=== PATIENT | male | born 1990 | race Asian ===

== ENCOUNTER 2022-12-11 13:04 | Inpatient (IN) | payer OTHER ==
[~2022-12-11] VITALS: Ht 172.7 cm; Wt 95.3 kg
[2022-12-11] MEDS ORDERED: LORAZEPAM 1 MG TABLET PO PRN ×8 (15:00→17:30)
[2022-12-11] MEDS ORDERED: ZOLPIDEM 5 MG TABLET PO PRN ×9 (15:00→17:30)
[2022-12-11 17:27] VITALS: BP 145/85; TEMP 98; O2SAT 96
[2022-12-11] MEDS ORDERED: MAGNESIUM HYDROXIDE 30 ML LIQUID UDC PO PRN (17:30)
[2022-12-11] MEDS ORDERED: IBUPROFEN 600 MG TABLET PO PRN (17:30)
[2022-12-11] MEDS ORDERED: MAG HYDROX/AL HYDROX/SIMETH 30 ML LIQUID UDC PO PRN (17:30)
[2022-12-11] MEDS ORDERED: ACETAMINOPHEN ES 500 MG TABLET PO PRN (17:30)
--- NOTE | 2022-12-11 18:04 | NUR ---
Patient is alert, oriented x4, no sob, respirations are even nonlabored, skin warm and dry to touch, came to unit ambulatory, with research team. any concerns will contact dr carmichael.
[2022-12-11] MEDS ORDERED: OLANZAPINE 10 MG PO SCH (19:00)
--- NOTE | 2022-12-11 20:00 | NUR ---
DR. DYE SPOKE TO PATIENT
--- NOTE | 2022-12-11 20:00 | NUR ---
Received patient laying in bed Alert and Oriented X4. In no acute distress. Call light within reach, will continue to monitor and continue plan of care. Will contact with any change of condition.
[2022-12-12] MEDS: OLANZAPINE 10 MG PO SCH ×2 (08:27→16:24)
[2022-12-12] MEDS ORDERED: OLANZAPINE 5 MG TABLET PO SCH ×2 (09:00)
--- NOTE | 2022-12-12 11:12 | NUR ---
patient is sleeping, no distress noted, patient ate his meal.
[2022-12-12 11:56] VITALS: BP 137/70; TEMP 98.3; O2SAT 97
[2022-12-12 16:00] VITALS: BP 128/88; TEMP 98.5; O2SAT 98
--- NOTE | 2022-12-12 19:21 | NUR ---
patient took shower, tolerated all the meals, no distress noted
[2022-12-12 22:44] VITALS: BP 151/94; TEMP 98; O2SAT 98
[2022-12-13 04:00] VITALS: BP 123/86; TEMP 97.8; O2SAT 100
--- NOTE | 2022-12-13 05:39 | NUR ---
Pt received sitting in bed in no distress requesting some snack. Provided snack and PO fluids tolerates well, denies any discomfort no distracted behavior observed. Pt did not want a hospital gown. at 0200 Pt uses his vaping in his room activation the alarm of the smoke detector. Pt understood no vaping inside of the room and agrees to handle his vaping to staff until AM. No PRN requested after and Pt slept without any more distraction. Endorse care to incoming nurse
[2022-12-13 07:14] VITALS: BP 123/80; TEMP 97.8; O2SAT 100
[2022-12-13 08:00] VITALS: BP 123/79; TEMP 97.8; O2SAT 98
[2022-12-13] MEDS: OLANZAPINE 10 MG PO SCH ×2 (09:07→16:27)
[2022-12-13 12:00] VITALS: BP 109/83; TEMP 97.9; O2SAT 99
[2022-12-13 16:00] VITALS: BP 118/80; TEMP 97.5; O2SAT 100
--- NOTE | 2022-12-13 16:59 | NUR ---
Spoke with rissa wills for research- confiscated vape. Instructed pt not to vape in the room. Pt denies any co pain. Pt cooperative with taking his pills. Pt denies any c/o pain.
--- NOTE | 2022-12-13 18:36 | NUR ---
NO EPS NOTED THROUGHOUT SHIFT.
[2022-12-13 20:00] VITALS: BP 103/70; TEMP 98.7; O2SAT 99
[2022-12-14 04:00] VITALS: BP 113/71; TEMP 98.3; O2SAT 99
--- NOTE | 2022-12-14 06:19 | NUR ---
Pt received in bed taken a nap no respiratory distress observed,snack was provided to pt, and denies any discomfort No PRN medication was requested. Pt tolerates well PO intake, denies any abdominal discomfort. Pt slept well during the night. continue monitoring safety and endorse care to incoming nurse
[2022-12-14] MEDS: OLANZAPINE 10 MG PO SCH ×2 (09:21→16:43)
[2022-12-14 12:00] VITALS: BP 121/88; TEMP 97.6; O2SAT 99
[2022-12-14 16:10] VITALS: BP 120/91; TEMP 97.6; O2SAT 96
--- NOTE | 2022-12-14 18:39 | NUR ---
No EPS noted. Pt is in no acute distress. Pt had a shower today. Pt more awake alert and walking about. Reinforce rules re: Vaping. No vaping inside the room.
--- NOTE | 2022-12-14 19:30 | NUR ---
Received patient sleeping in bed. In no acute distress, Alert and Oriented X4. Fully ambulatory. Will continue to monitor and will continue plan of care.
[2022-12-14 20:00] VITALS: BP 143/71; TEMP 98.4; O2SAT 98
[2022-12-15 04:00] VITALS: BP 121/88; TEMP 98.3; O2SAT 97
[2022-12-15] MEDS ORDERED: OLANZAPINE 10 MG PO SCH (09:00)
[2022-12-15 11:58] VITALS: BP 122/75; TEMP 98; O2SAT 98
[2022-12-15 15:56] VITALS: BP 118/83; TEMP 98.6; O2SAT 99
--- NOTE | 2022-12-15 17:38 | NUR ---
No tremors noted throughout shift.
--- NOTE | 2022-12-15 20:00 | NUR ---
Received patient sleeping in bed. In no acute distress, Alert and Oriented X4. Fully ambulatory. Will continue to monitor and will continue plan of care.
--- NOTE | 2022-12-16 07:30 | NUR ---
NIGHT NURSE REPORT RECEIVED: 1) MENTAL STATE: AO x 4 - No SOB, signs of pain, or distress. 2) BREATHING: Patient on RA - , sat in the high 90s. No sign of distress observed. 3) SAFETY: BRP - Bed in low position, Bed alarm not activated, floor free of clutter and call clement within reach. 4) CIRCULATION: No signs of cyanosis observed. 5) MOBILITY: Fully mobile- independent. 6) BOWEL MOVEMENT: No Bowels at the time of this report. 7) INFECTION CONTROL: Iv access - clean, dry, patent, and no sign of inflammation or infection observed. 8) SKIN: Patient skin intact 9) PLAN: (i) Will continue to treat patient accordingly. (ii) Patient going out for the day / day leave
--- NOTE | 2022-12-16 08:00 | NUR ---
DAY LEAVE: Patient left the unit as RN started the shift - this was from prior arrangement and agreement with
[2022-12-16] MEDS ORDERED: LORAZEPAM 1 MG TABLET PO PRN (15:00)
[2022-12-16] MEDS ORDERED: ZOLPIDEM 5 MG TABLET PO PRN (15:00)
--- NOTE | 2022-12-16 19:30 | NUR ---
Received patient sleeping in bed. In no acute distress, Alert and Oriented X4. Fully ambulatory. Will continue to monitor and will continue plan of care.
[2022-12-16 20:00] VITALS: BP 123/92; TEMP 97.4; O2SAT 100
[2022-12-16 21:35] VITALS: BP 123/92; TEMP 97.4; O2SAT 100
[2022-12-17 04:00] VITALS: BP 129/88; TEMP 97.8; O2SAT 100
--- NOTE | 2022-12-17 07:00 | NUR ---
Received patient sleeping in bed. In no acute distress, Alert and Oriented X4. Fully ambulatory. Will continue to monitor and will continue plan of care.
--- NOTE | 2022-12-17 10:23 | NUR ---
Research team, Viry and 1 other, took pt downstairs for a smoking break. Pt stable. Ambulating with steady gait.
--- NOTE | 2022-12-17 10:45 | NUR ---
Patient was out on pass with research team. Not seen yet
--- NOTE | 2022-12-17 14:49 | NUR ---
Patient came back from out on pass, brought by research team. Ambulatory, awake, alert and oriented Vital signs taken and recorded Observed accordingly, needs attended
[2022-12-17 15:52] VITALS: BP 120/77; TEMP 97.9; O2SAT 100
--- NOTE | 2022-12-17 19:35 | NUR ---
Received patient in his room, no complain of pain, calm and cooperative with care, assigned staff offered patient to smoke outside the building but patient refused, cont to monitor.
[2022-12-17 21:14] VITALS: BP 129/86; TEMP 97.8; O2SAT 100
--- NOTE | 2022-12-18 05:32 | NUR ---
Patient stayed in his room most of the night, no complain of pain, calm and cooperative with the care, had shower last night, cont to monitor.
[2022-12-18 05:40] VITALS: BP 132/84; TEMP 97.6; O2SAT 100
--- NOTE | 2022-12-18 07:00 | NUR ---
Received patient sleeping in bed Alert and Oriented X4. In no acute distress. Call light within reach, will continue to monitor and continue plan of care. Will contact with any change of condition.
--- NOTE | 2022-12-18 09:00 | NUR ---
Research team, Viry and 1 other, took pt downstairs for a smoking break. Pt stable. Ambulating with steady gait.
--- NOTE | 2022-12-18 10:00 | NUR ---
Pt returned from his smoke break with a member of the research team. Pt ambulating with steady gait. No s/s of distress noted. Will endorse to night nurse.
--- NOTE | 2022-12-18 10:25 | NUR ---
pt is sleeping at this time
[2022-12-18 12:03] VITALS: BP 138/91; TEMP 97.9; O2SAT 100
[2022-12-18 16:00] VITALS: BP 127/92; TEMP 97.8; O2SAT 99
--- NOTE | 2022-12-18 20:00 | NUR ---
Patient in his room, he's in his phone, Research Staff offer patient if he wanted to go for smoke, patient refused to go, explain to patient that this is last time for the day when he can go out for smoke, patient able to understand. Patient calm and cooperative with care, cont to monitor.
[2022-12-18 20:10] VITALS: BP 121/86; TEMP 97.6; O2SAT 98
[2022-12-19 04:40] VITALS: BP 117/86; TEMP 98; O2SAT 99
--- NOTE | 2022-12-19 06:11 | NUR ---
Patient asleep, calm and cooperative with care, patient has good sleep last night, cont to monitor.
[2022-12-19 13:05] VITALS: BP 134/87; TEMP 98.2; O2SAT 98
[2022-12-19 16:32] VITALS: BP 129/66; TEMP 98.2; O2SAT 99
[2022-12-19 20:00] VITALS: BP 136/80; TEMP 98.7; O2SAT 100
[2022-12-20 04:00] VITALS: BP 136/86; TEMP 98; O2SAT 99
--- NOTE | 2022-12-20 06:08 | NUR ---
Patient awake, in bed, in his phone. Patient has no complain of pain or discomfort, calm and cooperative with care, cont to monitor.
--- NOTE | 2022-12-20 06:50 | NUR ---
Received patient aox4, patient sleeping at this time . No signs of acute distress noted.call light with in reach
[2022-12-20 12:24] VITALS: BP 143/91; TEMP 98.2; O2SAT 98
[2022-12-20 16:04] VITALS: BP 137/90; TEMP 98.3; O2SAT 98
[2022-12-20 20:00] VITALS: BP 147/89; TEMP 98.3; O2SAT 99
[2022-12-21 04:00] VITALS: BP 120/84; TEMP 98.5; O2SAT 100
[2022-12-21 11:11] VITALS: BP 132/94; TEMP 98.4; O2SAT 100
[2022-12-21 15:49] VITALS: BP 134/94; TEMP 98.4; O2SAT 100
--- NOTE | 2022-12-21 16:17 | NUR ---
pt is resting in his room all the needs met
[2022-12-21 20:57] VITALS: BP 146/85; TEMP 98.4; O2SAT 98
--- NOTE | 2022-12-22 01:42 | NUR ---
pt is awake in his room and he took shower 4 times
--- NOTE | 2022-12-22 10:00 | NUR ---
Rcvd pt in bed resting and doesn't want to be bothered. Pt. stable and comfortable. Had a late breakfast but consumed 90%. With calm demeanor but room is cluttered with clothes. Needs attended. Preferred the door closed.. Checked pt. as frequent as possible.
[2022-12-22 11:37] VITALS: BP 123/81; TEMP 97.5; O2SAT 98
[2022-12-22 16:38] VITALS: BP 116/77; TEMP 98.4; O2SAT 99
--- NOTE | 2022-12-22 18:12 | NUR ---
Pt calm and relaxed. All needs attended. Frequent visits made since pt. prefers the door closed. Reminded the pt about the disadvantage of cluttered room. Pt verbalized understanding.
[2022-12-23 04:00] VITALS: BP 116/81; TEMP 98; O2SAT 100
--- NOTE | 2022-12-23 06:21 | NUR ---
Admitted for research study. VSS No acute distress noted. Calm and cooperative. Needs attended. No complaints noted.
[2022-12-23] MEDS ORDERED: ZOLPIDEM 5 MG TABLET PO PRN (15:00)
[2022-12-23] MEDS ORDERED: LORAZEPAM 1 MG TABLET PO PRN (15:00)
--- NOTE | 2022-12-23 15:20 | NUR ---
0730 - Patient not in room during rounds. 1130 - Patient back in room. Patient in no acute distress. Provided towels,toiletries as requested, pt states he wants to shower. 1515 - Patient went off floor, initially telling DIRECTOR OF STUDENT LIFE that " he ordered food and will go down to pear picker", notified Kashmir from research.
[2022-12-23 15:59] VITALS: BP 144/77; TEMP 97.7; O2SAT 99
--- NOTE | 2022-12-23 16:54 | NUR ---
Back in room, calm , cooperative . No further concerns at this time.
[2022-12-23 20:00] VITALS: BP 134/73; TEMP 97.8; O2SAT 98
[2022-12-24 11:12] VITALS: BP 131/94; TEMP 98.3; O2SAT 96
[2022-12-24 15:04] VITALS: BP 124/85; TEMP 98.4; O2SAT 99
--- NOTE | 2022-12-24 17:34 | NUR ---
no events noted during day shift
[2022-12-24 20:00] VITALS: BP 134/73; TEMP 97.5; O2SAT 98
[2022-12-25 04:00] VITALS: BP 125/88; TEMP 98.5; O2SAT 94
[2022-12-25 11:53] VITALS: BP 130/85; TEMP 98.1; O2SAT 97
[2022-12-25 15:48] VITALS: BP 138/93; TEMP 98.5; O2SAT 98
[2022-12-25 20:19] VITALS: BP 128/86; TEMP 98.4; O2SAT 99
[2022-12-26 05:30] VITALS: BP 130/85; TEMP 98.3; O2SAT 99
[2022-12-26 11:59] VITALS: BP 135/90; TEMP 97.5; O2SAT 100
--- NOTE | 2022-12-26 14:30 | NUR ---
Nursing - In his room no distress, cooperative , pleasant, denies any discomfort , monitored needs ,call clement with in his reach.
[2022-12-26 16:16] VITALS: BP 125/88; TEMP 97.6; O2SAT 100
[2022-12-26 20:41] VITALS: BP 128/84; TEMP 98.4; O2SAT 97
[2022-12-27 04:39] VITALS: BP 126/89; TEMP 98.2; O2SAT 100
--- NOTE | 2022-12-27 06:55 | NUR ---
PATIENT ASLEEP IN BED. SLEPT WELL THROUGHOUT THE NIGHT. ALL NEEDS ATTENDED. WILL CONTINUE TO MONITOR AND ASSESS.
[2022-12-27 11:41] VITALS: BP 118/85; TEMP 97.4; O2SAT 98
--- NOTE | 2022-12-27 12:30 | NUR ---
up in the BR,steady fait, no distress noted, states will eat lunch in a little bit, tray in the room
[2022-12-27 15:18] VITALS: BP 111/81; TEMP 98.4; O2SAT 99
--- NOTE | 2022-12-27 16:30 | NUR ---
in the room, no distress noted, took shower x 2, pleasant and cooperative, all needs attended, call light within reach
--- NOTE | 2022-12-27 18:30 | NUR ---
resting in bed, no distress noted, calm, no tremors noted, eating and voiding qs, call light within reach, all needs attended and met
[2022-12-28 06:11] VITALS: TEMP 98.2; O2SAT 99
[2022-12-28 08:00] VITALS: BP 118/74; TEMP 98.1; O2SAT 98
[2022-12-28 11:55] VITALS: BP 139/91; TEMP 98; O2SAT 100
[2022-12-28 16:04] VITALS: BP 135/86; TEMP 98.6; O2SAT 100
[2022-12-28 20:00] VITALS: BP 130/87; TEMP 97.1; O2SAT 100
--- NOTE | 2022-12-28 20:30 | NUR ---
v/s done WNL ,AAOX4/MAEX4. patient having dinner requested for orange juice ,tuna sandwich and ice water provided .
[2022-12-29 04:00] VITALS: BP 120/76; TEMP 98; O2SAT 98
--- NOTE | 2022-12-29 08:29 | NUR ---
Received patient asleep in bed. No acute signs of distress, no SOB, no complain. Awake, alert and oriented. Vital signs taken and recorded. Attended
[2022-12-29 08:41] VITALS: BP 111/86; TEMP 97.8; O2SAT 100
[2022-12-29 11:55] VITALS: BP 138/89; TEMP 98; O2SAT 100
[2022-12-29 15:50] VITALS: BP 133/92; TEMP 98.9; O2SAT 98
[2022-12-29 17:42] VITALS: BP 132/86; TEMP 98.9; O2SAT 98
[2022-12-29 20:00] VITALS: BP 118/77; TEMP 98.1; O2SAT 97
--- NOTE | 2022-12-30 01:45 | NUR ---
Received patient endorsed from LAM Taylor at 0145. Patient is sleeping well. Oriented x4, and no shortness of breath or acute respiratory distress noted. Denies pain or discomfort. No Intravenous access noted. Side rails up x 2, call light within reach. All needs and concerns addressed by nursing staff. Will continue to monitor.
[2022-12-30 04:00] VITALS: BP 122/72; TEMP 98; O2SAT 98
--- NOTE | 2022-12-30 07:30 | NUR ---
Patient not in his room at this time, out with the research team.
--- NOTE | 2022-12-30 12:30 | NUR ---
Patient came back. Vital signs taken and recorded. No acute signs of distress, no SOB. Monitored accordingly. Attended
[2022-12-30 13:10] VITALS: BP 109/71; TEMP 98; O2SAT 97
[2022-12-30] MEDS ORDERED: LORAZEPAM 1 MG TABLET PO PRN (15:00)
[2022-12-30] MEDS ORDERED: ZOLPIDEM 5 MG TABLET PO PRN (15:00)
[2022-12-30 16:00] VITALS: BP 114/71; TEMP 98; O2SAT 99
--- NOTE | 2022-12-31 02:03 | NUR ---
Pt.is asleep during rounds. Breathing is easy and unlabored. Denied pain when asked last night. VSS. Safety emphasized. Will continue to monitor.
--- NOTE | 2022-12-31 07:00 | NUR ---
Received patient asleep in bed. No signs of distress. Awake, alert and oriented. call light with in reach
[2022-12-31 12:00] VITALS: BP 144/74; TEMP 98.9; O2SAT 98
[2022-12-31 16:00] VITALS: BP 121/78; TEMP 97.4; O2SAT 97
[2022-12-31 20:00] VITALS: BP 125/82; TEMP 98.6; O2SAT 97
[2023-01-01 04:00] VITALS: BP 128/90; TEMP 98.5; O2SAT 96
--- NOTE | 2023-01-01 06:53 | NUR ---
Pt.slept well last night. In no form of distress noted.
[2023-01-01 11:29] VITALS: BP 117/84; TEMP 97.9; O2SAT 98
[2023-01-01 16:00] VITALS: BP 115/79; TEMP 97.9; O2SAT 98
[2023-01-01 20:00] VITALS: BP 125/79; TEMP 98.8; O2SAT 96
--- NOTE | 2023-01-02 10:57 | NUR ---
pt took shower and resting in his room
--- NOTE | 2023-01-02 16:31 | NUR ---
Pt.is asleep during rounds. Breathing is easy and unlabored. Safety emphasized. Will continue to monitor.
[2023-01-02 20:00] VITALS: BP 119/82; TEMP 98; O2SAT 99
[2023-01-03 05:31] VITALS: BP 126/80; TEMP 98.2; O2SAT 100
--- NOTE | 2023-01-03 06:55 | NUR ---
Received patient asleep in bed. No signs of distress. Awake, alert and oriented. call light with in reach
[2023-01-03 11:45] VITALS: BP 123/80; TEMP 97.2; O2SAT 100
--- NOTE | 2023-01-03 13:45 | NUR ---
Patient awake in bed. He is comfortable. He is calm and relax with no s/s of tremors at time. He is alert and oriented x4, verbal, able to make his needs known.. Patient is ambulatory. No new changes reported. Will continue to monitor.
[2023-01-03 16:58] VITALS: BP 144/94; TEMP 97.9; O2SAT 94
[2023-01-03 20:04] VITALS: BP 118/82; TEMP 98.2; O2SAT 99
[2023-01-04 05:52] VITALS: BP 123/71; TEMP 98; O2SAT 99
[2023-01-04 11:59] VITALS: BP 123/70; TEMP 97.5; O2SAT 99
[2023-01-04 16:49] VITALS: BP 112/75; TEMP 98.6; O2SAT 99
[2023-01-04 20:00] VITALS: BP 130/63; TEMP 98.3; O2SAT 98
[2023-01-05 04:00] VITALS: BP 135/86; TEMP 98.1; O2SAT 99
[2023-01-05 12:00] VITALS: BP 102/70; TEMP 98.5; O2SAT 98
--- NOTE | 2023-01-05 17:52 | NUR ---
pt took shower and resting in his room
[2023-01-05 21:14] VITALS: BP 125/85; TEMP 98; O2SAT 99
--- NOTE | 2023-01-06 07:17 | NUR ---
Patient went out on pass with research team.
--- NOTE | 2023-01-06 12:29 | NUR ---
Patient came back. Vital signs taken and recorded. No acute signs of distress, no SOB. Monitored accordingly. Attended
[2023-01-06 16:00] VITALS: BP 103/69; TEMP 97.6; O2SAT 98
[2023-01-06 20:00] VITALS: BP 129/86; TEMP 97.2; O2SAT 98
--- NOTE | 2023-01-06 20:00 | NUR ---
rounds made patient in bed watching tv, aaox4, maex4 . patient denies pain when asked . no respiratory distress noted breathing even and unlabored .v/s done and wnl .
--- NOTE | 2023-01-06 20:30 | NUR ---
research personnel came and provided hygiene kit to patient , shaving kit .
--- NOTE | 2023-01-06 21:15 | NUR ---
patient called and asked for some snack provided tuna sandwich , orange juice and apple juice ice water patient able to feed self .
[2023-01-07 04:00] VITALS: BP 125/79; TEMP 98.1; O2SAT 99
--- NOTE | 2023-01-07 06:40 | NUR ---
seen by Balta research coordinator .
--- NOTE | 2023-01-07 08:00 | NUR ---
RECEIVED IN BED AWAKE ALERT AND ANSWERS QUESTIONS APPROPRIATELY, CALM AND COOPERATIVE. CONTINUE OBSERVATION ,
[2023-01-07 12:00] VITALS: BP 121/77; TEMP 97.4; O2SAT 98
--- NOTE | 2023-01-07 12:00 | NUR ---
NO CHANGE OF STATUS FROM MORNING ASSESSMENT
[2023-01-07 15:58] VITALS: BP 136/84; TEMP 97.8; O2SAT 97
--- NOTE | 2023-01-07 16:41 | NUR ---
PATIENT REMAINED IN ROOM MOST OF THE DAY QUIET, NO HALLUCINATION OBSERVED CONTINUE CARE UNDER RESEARCH PROGRAM
[2023-01-07 20:00] VITALS: BP 129/81; TEMP 98.1; O2SAT 98
[2023-01-08 04:00] VITALS: BP 125/79; TEMP 98.8; O2SAT 97
--- NOTE | 2023-01-08 05:30 | NUR ---
sleeping no respiratory distress noted breathing even and unlabored . uneventful night .
--- NOTE | 2023-01-08 06:45 | NUR ---
awake ,ambulate brp .uneventful night .
[2023-01-08 11:06] VITALS: BP 118/66; TEMP 98.1
--- NOTE | 2023-01-08 15:26 | NUR ---
IN ROOM SLEEPING MOST OF THE SHIFT, NO SIGNS OF DISTRESS, PAIN OR AGITATION. COMPLIANT AND GOOD APPETITE WITH MEALS.
[2023-01-08 16:00] VITALS: BP 130/60; TEMP 98.1; O2SAT 97
[2023-01-08 20:15] VITALS: BP 125/72; TEMP 98.1; O2SAT 97
[2023-01-09 05:06] VITALS: BP 134/81; TEMP 97.8; O2SAT 97
--- NOTE | 2023-01-09 08:30 | NUR ---
RECEIVED PATIENT IN BED AWAKE ALERT AND ORIENTED DENIES DISCOMFORTS RESTING COMFORTABLY WELL CALL LIGHTS AND PERSOANL BELONGINGS ARE WITHIN EASY REACH WILL CONTINUE TO OBSERVE.
--- NOTE | 2023-01-09 16:56 | NUR ---
NO C/O NOTED DENIES TREMORS NOT IN DISTRESS AT THIS TIME.
[2023-01-09 20:16] VITALS: BP 118/79; TEMP 97.8; O2SAT 97
--- NOTE | 2023-01-10 05:45 | NUR ---
PATIENT ASLEEP IN BED. EASILY AROUSABLE. SLEPT WELL THROUGHOUT THE NIGHT, WILL CONTINUE TO MONITOR AND ASSESS.
[2023-01-10 06:29] VITALS: BP 121/69; TEMP 98.1; O2SAT 97
--- NOTE | 2023-01-10 08:00 | NUR ---
sleeping on rounds and arouses easily, no distress noted, vs stable, no tremors noted, breakfast served, safety measures in place
[2023-01-10 11:31] VITALS: BP 107/72; TEMP 97.7; O2SAT 99
--- NOTE | 2023-01-10 13:00 | NUR ---
up and about in the room, voiding qs
[2023-01-10 16:00] VITALS: BP 115/76; TEMP 98.2; O2SAT 98
--- NOTE | 2023-01-10 19:22 | NUR ---
took shower this shift, taking fluids well, no distress noted, stayed in the room most of the time, no tremors noted, all needs attended and met, call light within reach
[2023-01-10 20:34] VITALS: BP 110/78; TEMP 98.4; O2SAT 97
--- NOTE | 2023-01-11 06:58 | NUR ---
Uneventful night; rested well.
--- NOTE | 2023-01-11 09:15 | NUR ---
Rcvd pt in bed sleeping but arousable. Morning tray served but preferred to eat late. Needs attended. Will continue to monitor.
[2023-01-11 11:52] VITALS: BP 114/84; TEMP 97.6; O2SAT 98
[2023-01-11 16:17] VITALS: BP 137/92; TEMP 98.2; O2SAT 98
--- NOTE | 2023-01-11 18:08 | NUR ---
Pt. was just staying inside the room the whole day. Consumed the meal 100% and asking for more extra sandwich. Did not ask for any PRN medication. No agitation noted. Pt has a calm demeanor and pleasant when talking. Needs attended
[2023-01-11 20:10] VITALS: BP 108/80; TEMP 98; O2SAT 98
[2023-01-12 06:19] VITALS: BP 117/76; TEMP 97.8; O2SAT 98
--- NOTE | 2023-01-12 06:33 | NUR ---
PATIENT SLEPT WELL. DENIES HEARING ANY VOICES. COOPERATIVE WITH STAFF. VSS. CALL LIGHT IN REACH. ALL NEEDS ATTENDED. WILL CONTINUE TO MONITOR AND ASSESS.
--- NOTE | 2023-01-12 09:45 | NUR ---
Rcvd pt bed sleeping flat. Preferred to take breakfast late. No complaint or did not ask for any medication. Pt with calm demeanor. Room is cluttered but patient teaching provided and pt. verbalized understanding. Needs attended and call light within reach.
[2023-01-12 11:36] VITALS: BP 99/64; TEMP 98; O2SAT 99
[2023-01-12 16:00] VITALS: BP 125/78; TEMP 98.3; O2SAT 100
--- NOTE | 2023-01-12 18:36 | NUR ---
At around 2:00pm, fire alarm was On. Pt found out to be vaping inside the room. Patient education provided. Pt verbalized understanding. Pt did ask for any medications, no complaint and with a calm behaviour. Took a shower. Frequent room visits provided to ensure pts. safety. Needs attended.
--- NOTE | 2023-01-12 23:09 | NUR ---
Received patient laying in bed Alert and Oriented X4. In no acute distress. Call light within reach, will continue to monitor and continue plan of care. Will contact with any change of condition. Addendum: 01/12/23 at 2311 by MARIA ALEJANDRA STEEL RN Yomaira time, charting 19:30, 01/12/2023
--- NOTE | 2023-01-13 00:15 | NUR ---
Fire alarm activated, at 00:10, due to patient vaping in room. Upon opening door, vapor filled into the hallways. Patient initially denied vaping, however electronic cigarette was finally confiscated. All clear sounded 00:15. Will continue to monitor.
--- NOTE | 2023-01-13 00:45 | NUR ---
After incident of fire alarm, security thoroughly searched the patients belongings. Found and confiscated: Multiple electronic cigarettes(vapes), Cigarettes, Multiple Marijuana electronic cigarettes, Variety of smoking pipes, Variety of torch lighters, variety of mixed prescription medication in small clear bags. All contraband locked in contraband locker. Will notify research team of incident.
--- NOTE | 2023-01-13 06:45 | NUR ---
Director of Research, Balta, asked to keep contraband with him. Contraband collected from patient given to Balta.
--- NOTE | 2023-01-13 07:15 | NUR ---
Patient signed AMA, and left. Research team, Balta, is aware of patient signing AMA.
== END 2023-01-13 07:15 | disposition left against medical advice (07) | DRG 951 ==
LOC: TELE 16:41 → MEDSURG3 16:44
PROVIDERS: ADMIT Psychiatry & Neurology Psychiatry; ATTEND Psychiatry & Neurology Psychiatry
DX: Z00.6 Encounter for examination for normal comparison and control in clinical research program (principal); F20.9 Schizophrenia, unspecified
CPT/HCPCS: A4663; G0378